=== PATIENT | female | born 1960 | race Caucasian/White ===

== ENCOUNTER 2019-04-26 07:41 | Outpatient (CLI) | payer OTHER ==
[~2019-04-26 07:41] MED LIST: LEVO500T2 PO; PHEN-786 PO
[2019-04-26 08:26] LABS: BASOPHILS # (AUTO) 0.1 X10'3 (0-0.2); BASOPHILS % (AUTO) 1.2 % (0-1); EOSINOPHILS # (AUTO) 0.5 X10'3 (0-0.9); EOSINOPHILS % (AUTO) 6.3 % (0-6); HEMATOCRIT 47.5 % (35.0-45.0); HEMOGLOBIN 16.2 g/dl (12.0-16.0); LYMPHOCYTES # (AUTO) 3.2 X10'3 (1.1-4.8); MEAN CORPUSCULAR HEMOGLOBIN 30.1 PG (27.0-31.0); MEAN CORPUSCULAR VOLUME 88.3 FL (78-98); MEAN PLATELET VOLUME 8.7 FL (7.4-10.4); MONOCYTES # (AUTO) 0.8 X10'3 (0-0.9); MONOCYTES % (AUTO) 10.1 % (2-12); NEUTROPHILS # (AUTO) 3.3 X10'3 (1.8-7.7); NEUTROPHILS % (AUTO) 41.4 % (42-75); PLATELET COUNT 299 X10'3 (140-440); RED BLOOD COUNT 5.39 X10'6 (4.20-5.60); RED CELL DISTRIBUTION WIDTH 13.4 % (11.5-14.5); WHITE BLOOD COUNT 7.9 X10'3 (4.5-11.0)
[2019-04-26 08:49] LABS: ALANINE AMINOTRANSFERASE 28 U/L (12-78); ALBUMIN 3.9 G/DL (3.4-5.0); ALBUMIN/GLOBULIN RATIO 1.2 (1.1-1.5); ALKALINE PHOSPHATASE 73 IU/L (46-116); ANION GAP 6 (8-16); ASPARTATE AMINO TRANSFERASE 17 U/L (10-37); BILIRUBIN,TOTAL 0.3 MG/DL (0.1-1.0); BLOOD UREA NITROGEN 13 MG/DL (7-18); BUN/CREATININE RATIO 15.1 (6.6-38.0); CALCIUM 9.5 MG/DL (8.5-10.1); CHLORIDE 106 MMOL/L (99-107); CHOL/HDL RATIO 4.3 (0.00-4.99); CHOLESTEROL 217 MG/DL (0-200); CREATININE 0.86 MG/DL (0.40-0.90); GLUCOSE 93 MG/DL (70-104); HDL CHOLESTEROL 50 MG/DL (35-60); LDL CHOLESTEROL 130 MG/DL (50-100); POTASSIUM 3.9 MMOL/L (3.5-5.1); SODIUM 142 MMOL/L (135-145); TOTAL CARBON DIOXIDE 30.1 MMOL/L (24-32); TOTAL PROTEIN 7.2 G/DL (6.4-8.2); TRIGLYCERIDES 136 MG/DL (20-135); eGFR 67 ML/MIN
== END 2019-04-26 23:59 | disposition home or self-care (01) ==
LOC: RAD 07:41
PROVIDERS: ATTEND Family Medicine
DX: S83.511A Sprain of anterior cruciate ligament of right knee, initial encounter (principal); M17.11 Unilateral primary osteoarthritis, right knee; X58.XXXA Exposure to other specified factors, initial encounter; Y93.89 Activity, other specified; Y92.89 Other specified places as the place of occurrence of the external cause; Y99.8 Other external cause status
CPT/HCPCS: 36415; 73721; 80053; 80061; 84443; 85025

== ENCOUNTER 2019-10-14 02:01 | Emergency (ER) | payer OTHER ==
[~2019-10-14] VITALS: Ht 167.6 cm; Wt 77.3 kg
[2019-10-14 02:04] VITALS: BP 165/98
[2019-10-14] MEDS ORDERED: phenazopyridine 100mg tablet PO ONE (02:20)
[2019-10-14 02:27] LABS: CLARITY,URINE CLOUDY (Clear); COLOR,URINE YELLOW (Yellow); GLUCOSE, URINE NEGATIVE (Neg); KETONES,URINE NEGATIVE (Neg); LEUKOCYTE ESTERASE ,URINE MODERATE (Neg); OCCULT BLOOD,URINE LARGE (Neg); PH,URINE 5.5 (4.8-8.0); PROTEIN,URINE 100 mg/dl (Neg)
[2019-10-14 02:31] LABS: UA COLLECTION TYPE CLN CATCH MIDSTREAM
[2019-10-14 02:32] LABS: NITRITES, URINE NEGATIVE (Neg)
[2019-10-14 02:35] LABS: BACTERIA,URINE FEW /HPF (Neg); RBC,URINE TNTC /HPF (0-2); SQUAMOUS EPITHELIAL CELL,UR FEW /LPF (FEW)
[2019-10-14] MEDS ORDERED: CIPR-230 PO (02:50)
[2019-10-14] MEDS ORDERED: ciprofloxacin 250mg tablet PO ONE (02:50)
== END 2019-10-14 03:17 | disposition home or self-care (01) ==
LOC: ER 02:02
DX: N39.0 Urinary tract infection, site not specified (principal); R39.15 Urgency of urination; R10.30 Lower abdominal pain, unspecified; Z79.2 Long term (current) use of antibiotics; Z79.899 Other long term (current) drug therapy
CPT/HCPCS: 81001; 87077; 87088; 87186; 99283

== ENCOUNTER 2022-11-03 08:38 | Outpatient (CLI) | payer BC | END 2022-11-03 23:59 | disposition home or self-care (01) | LOC: RAD 08:38 | PROVIDERS: ATTEND Physician Assistant | DX: M94.261 Chondromalacia, right knee (principal); M25.461 Effusion, right knee; M25.361 Other instability, right knee; Z87.828 Personal history of other (healed) physical injury and trauma | CPT/HCPCS: 73721 ==

== ENCOUNTER 2023-03-04 09:04 | Outpatient (CLI) | payer BC | END 2023-03-04 23:59 | disposition home or self-care (01) | LOC: RAD 09:04 | PROVIDERS: ATTEND Orthopaedic Surgery | DX: Z01.810 Encounter for preprocedural cardiovascular examination (principal); R00.0 Tachycardia, unspecified | CPT/HCPCS: 93005 ==

== ENCOUNTER 2023-05-06 16:01 | Outpatient (CLI) | payer BC | END 2023-05-06 23:59 | disposition home or self-care (01) | LOC: CARD DIAG 16:01 | PROVIDERS: ATTEND Internal Medicine Cardiovascular Disease | DX: Z01.810 Encounter for preprocedural cardiovascular examination (principal); I37.1 Nonrheumatic pulmonary valve insufficiency; I34.81 Nonrheumatic mitral (valve) annulus calcification | CPT/HCPCS: 93306 ==

== ENCOUNTER 2023-05-21 10:12 | Inpatient (IN) | payer BC ==
[2023-05-18 11:33] LABS: BASOPHILS # (AUTO) 0.1 X10'3 (0-0.2); BASOPHILS % (AUTO) 0.7 % (0-1); EOSINOPHILS # (AUTO) 0.3 X10'3 (0-0.9); EOSINOPHILS % (AUTO) 3.3 % (0-6); LYMPHOCYTES # (AUTO) 2.5 X10'3 (1.1-4.8); LYMPHOCYTES % (AUTO) 24.9 % (21-51); MEAN CORPUSCULAR HEMOGLOBIN 30.8 PG (27.0-31.0); MEAN CORPUSCULAR HGB CONC 34.1 g/dL (33.0-36.5); MEAN CORPUSCULAR VOLUME 90.4 FL (78-98); MEAN PLATELET VOLUME 9.1 FL (7.4-10.4); MONOCYTES % (AUTO) 9.5 % (2-12); NEUTROPHILS # (AUTO) 6.2 X10'3 (1.8-7.7); NEUTROPHILS % (AUTO) 61.6 % (42-75); PRE OP HEMATOCRIT 47.8 % (35.0-45.0); PRE OP HEMOGLOBIN 16.3 g/dL (12.0-16.0); PRE OP PLATELET COUNT 290 X10'3 (140-440); RED BLOOD COUNT 5.29 X10'6 (4.20-5.60)
[2023-05-18 11:53] LABS: ALBUMIN/GLOBULIN RATIO 1.1 (1.1-1.5); ALKALINE PHOSPHATASE 72 IU/L (46-116); BLOOD UREA NITROGEN 14 MG/DL (7-18); BUN/CREATININE RATIO 16.7 (10.0-20.0); CALCIUM 9.1 MG/DL (8.5-10.1); CHLORIDE 106 MMOL/L (99-107); CREATININE 0.84 MG/DL (0.40-0.90); PRE OP ALT 46 U/L (30-65); PRE OP ANION GAP 7 (8-16); PRE OP AST 30 U/L (10-37); PRE OP BILIRUB, TOTAL 0.6 MG/DL (0.0-1.0); PRE OP GLUCOSE 94 MG/DL (70-104); PRE OP POTASSIUM 4.1 MMOL/L (3.4-5.1); PRE OP SODIUM 141 MMOL/L (135-145); THYROID STIMULATING HORMONE 1.21 ulU/ml (0.34-4.50); TOTAL CARBON DIOXIDE 27.9 MMOL/L (24-32); TOTAL PROTEIN 7.6 G/DL (6.4-8.2); eGFR 68 ML/MIN
[2023-05-21] VITALS (32 sets, daily range): BP systolic 111–154; BP diastolic 59–98; PULSE 64–99; RESP 10–21; TEMP 97.5–97.7; O2SAT 87–98
[~2023-05-21] VITALS: Ht 167.6 cm; Wt 86.8 kg
[2023-05-21] MEDS: ringers solution, lacted 1,000 ML IV SCH ×2 (05:00→13:10)
[2023-05-21] MEDS: tranexamic acid inj. 1,000 MG in normal saline IV soln 100ML IV ONE (05:30)
[2023-05-21] MEDS: vancomycin 1,500 MG in NS 300ml IV soln IV ONE (05:30)
[2023-05-21] MEDS: metoclopramide 5 mg/ml inj IV ONE (05:30)
[2023-05-21] MEDS: cefazolin 2gm/D5W 100mL 100 ML IV ONE (05:30)
[~2023-05-21 10:12] MED LIST changes: +LEVO25TA2 PO; -LEVO500T2 PO; +LOSA50TA64 PO; +OMEP20CA16 PO; -PHEN-786 PO; +ROSU20TA73 PO
[2023-05-21] MEDS: famotidine 20mg tablet PO ONE (11:06)
[2023-05-21] MEDS: gabapentin 300mg capsule PO ONE (11:06)
[2023-05-21] MEDS: oxyCODONE SR 10mg (sust. release) tab -2 tabs (20mg) PO ONE (11:07)
[2023-05-21] MEDS: acetaminophen 325mg tablet PO ONE (11:07)
[2023-05-21] MEDS: celeCOXIB 100mg capsule PO ONE (11:07)
[2023-05-21] MEDS ORDERED: LIDOcaine 1%/PF 5ML 10 MG/ML VIAL ONE (12:42)
[2023-05-21] MEDS ORDERED: fentaNYL/PF 50MCG/1 ML 2ML syringe ONE (12:52)
[2023-05-21] MEDS ORDERED: proCHLORperazine 10 MG/2 ml inj IV PRN (13:10)
[2023-05-21] MEDS ORDERED: meperidine/PF 25mg/ml syringe IV PRN ×3 (13:10)
[2023-05-21] MEDS: acetaminophen 1,000mg/100ml IV 100 ML IV ONE (13:10)
[2023-05-21] MEDS ORDERED: morphine 4 MG/ML inj SYRINge IV PRN (13:10)
[2023-05-21] MEDS ORDERED: ondansetron/PF 4mg/2ml inj IV PRN (13:10)
[2023-05-21] MEDS ORDERED: hydrALAZINE 20mg/ml inj. IV PRN (13:10)
[2023-05-21] MEDS ORDERED: morphine 2 MG/ML inj. syringe IV PRN (13:10)
[2023-05-21] MEDS ORDERED: labetalol 20mg/4ml (5mg/ml) syringe IV PRN (13:10)
[2023-05-21] MEDS ORDERED: midazolam 1 mg/ML 2ml injection ONE (13:12)
[2023-05-21] MEDS ORDERED: propofol inj 20 ML IV ONE ×5 (13:12→14:36)
[2023-05-21] MEDS ORDERED: ePHEDrine 50MG/ML INJ. ONE (13:14)
[2023-05-21] MEDS: BUPIVACAINE/MELOXICAM 14 ML VIAL IL ONE (13:52)
[2023-05-21] MEDS: vancomycin 1,000mg inj ONE (13:53)
[2023-05-21] MEDS ORDERED: ROPIVAcaine 0.5% (5mg/ml) 30ml vial ONE (14:48)
[2023-05-21] MEDS ORDERED: dexamethasone sod phosphate 4mg/ml inj. ONE (14:48)
[2023-05-21] MEDS ORDERED: magnesium hydroxide 30ml (MOM) UD suspension PO PRN (14:50)
[2023-05-21] MEDS ORDERED: diphenhydrAMINE 25mg capsule PO PRN ×2 (14:50)
[2023-05-21] MEDS ORDERED: bisacodyl 10mg suppository rectal RC PRN (14:50)
[2023-05-21] MEDS ORDERED: acetaminophen 325mg tablet PO PRN (14:50)
[2023-05-21] MEDS ORDERED: naloxone 0.4 mg/ml inj IV PRN (14:50)
[2023-05-21] MEDS: ketorolac tromethamine 15mg/ml inj. IV ONE (16:41)
[2023-05-21] MEDS: cefazolin 2gm/D5W 100mL 100 ML IV SCH (17:12)
[2023-05-21] MEDS: tranexamic acid inj. 900 MG in normal saline 100ml IV soln 91 ML IV ONE (17:48)
[2023-05-21] MEDS: ondansetron/PF 4mg/2ml inj IV PRN (18:45)
[2023-05-21] MEDS: HYDROcodone/acetaminophen 10/325mg tab PO PRN (19:32)
[2023-05-21] MEDS: losartan 50mg tablet PO SCH (20:00)
[2023-05-21] MEDS: sennosides 8.6mg tablet PO SCH (21:00)
[2023-05-21] MEDS: VANCOMYCIN 1,500MG inj. 1,500 MG in normal saline 500ml IV soln 300 ML IV ONE (21:52)
[2023-05-21] MEDS: potassium cl 20mEq in 1/2 NS 1,000 ML IV SCH (21:53)
[2023-05-21] MEDS: ascorbic acid 500mg tablet PO SCH (22:00)
[2023-05-21] MEDS: gabapentin 300mg capsule PO SCH (22:00)
[2023-05-22 01:38] VITALS: BP 132/63; PULSE 90; RESP 16; TEMP 97.5; O2SAT 94
[2023-05-22] MEDS: HYDROcodone/acetaminophen 10/325mg tab PO PRN (04:25)
[2023-05-22] MEDS: atorvastatin 20mg tablet PO SCH (07:35)
[2023-05-22] MEDS: levoTHYROXINE 25mcg tablet PO SCH (07:37)
[2023-05-22 07:39] VITALS: BP_SYST 110; PULSE 95
[2023-05-22] MEDS: pantoprazole 40mg Tablet.DR PO SCH (07:41)
[2023-05-22] MEDS: aspirin 325mg tablet PO SCH (07:43)
[2023-05-22] MEDS: multivitamins, therapeutics tablet PO SCH (07:45)
[2023-05-22 08:47] LABS: BASOPHILS % (AUTO) 0.3 % (0-1); EOSINOPHILS % (AUTO) 0 % (0-6); HEMATOCRIT 39.5 % (35.0-45.0); HEMOGLOBIN 13.5 g/dl (12.0-16.0); LYMPHOCYTES # (AUTO) 1.4 X10'3 (1.1-4.8); LYMPHOCYTES % (AUTO) 10.1 % (21-51); MEAN CORPUSCULAR HEMOGLOBIN 30.5 PG (27.0-31.0); MEAN CORPUSCULAR HGB CONC 34.1 g/dL (33.0-36.5); MEAN CORPUSCULAR VOLUME 89.5 FL (78-98); MEAN PLATELET VOLUME 8.9 FL (7.4-10.4); MONOCYTES # (AUTO) 1.4 X10'3 (0-0.9); MONOCYTES % (AUTO) 10.4 % (2-12); NEUTROPHILS # (AUTO) 10.8 X10'3 (1.8-7.7); NEUTROPHILS % (AUTO) 79.2 % (42-75); PLATELET COUNT 261 X10'3 (140-440); RED BLOOD COUNT 4.42 X10'6 (4.20-5.60); RED CELL DISTRIBUTION WIDTH 12.7 % (11.5-14.5); WHITE BLOOD COUNT 13.6 X10'3 (4.5-11.0)
[2023-05-22 09:00] VITALS: RESP 16; O2SAT 95
[2023-05-22 09:19] LABS: CHLORIDE 105 MMOL/L (99-107); POTASSIUM 4.1 MMOL/L (3.5-5.1); SODIUM 139 MMOL/L (135-145)
[2023-05-22 09:43] LABS: ANION GAP 11 (8-16); TOTAL CARBON DIOXIDE 23.3 MMOL/L (24-32)
[2023-05-22] MEDS ORDERED: celeCOXIB 100mg capsule PO SCH (20:00)
== END 2023-05-22 09:30 | disposition home or self-care (01) | DRG 470 ==
LOC: PAS 10:12 → ORTHO 4S 14:52
PROVIDERS: ADMIT Orthopaedic Surgery; ATTEND Orthopaedic Surgery
PROC: 0SRC069 Replacement of Right Knee Joint with Oxidized Zirconium on Polyethylene Synthetic Substitute, Cemented, Open Approach (ICD-10-PCS; principal; 2023-05-21 12:42)
DX: M17.11 Unilateral primary osteoarthritis, right knee (principal); M21.161 Varus deformity, not elsewhere classified, right knee
CPT/HCPCS: Z7506; Z7508; 36415; 73560; 80051; 80053; 82948; 84443; 85025; 86885; 86900; 86901; 87081; 97110; 97116; 97161; 97530; A4215; A4615; A6449; A7000; A9272; C1713; C1776; G0378; J0690; J1100; J1885; J2250; J2405; J2704; J2765; J2795; J3010; J3370; J3480; J3490; J7040; J7120

== ENCOUNTER 2024-01-26 13:38 | Outpatient (CLI) | payer BC ==
[~2024-01-26 13:38] MED LIST changes: -ROSU20TA73 PO; +ROSU20TA98 PO
[2024-01-26 14:07] LABS: BASOPHILS # (AUTO) 0.1 X10'3 (0-0.2); EOSINOPHILS # (AUTO) 0.2 X10'3 (0-0.9); EOSINOPHILS % (AUTO) 3.4 % (0-6); HEMOGLOBIN 14.5 g/dl (12.0-16.0); LYMPHOCYTES # (AUTO) 2.4 X10'3 (1.1-4.8); LYMPHOCYTES % (AUTO) 33.5 % (21-51); MEAN CORPUSCULAR HEMOGLOBIN 30.3 PG (27.0-31.0); MEAN CORPUSCULAR HGB CONC 33.7 g/dL (33.0-36.5); MEAN CORPUSCULAR VOLUME 89.9 FL (78-98); MEAN PLATELET VOLUME 8.7 FL (7.4-10.4); MONOCYTES # (AUTO) 0.7 X10'3 (0-0.9); MONOCYTES % (AUTO) 9.5 % (2-12); NEUTROPHILS # (AUTO) 3.7 X10'3 (1.8-7.7); NEUTROPHILS % (AUTO) 52.6 % (42-75); PLATELET COUNT 307 X10'3 (140-440); RED BLOOD COUNT 4.78 X10'6 (4.20-5.60); RED CELL DISTRIBUTION WIDTH 12.6 % (11.5-14.5); WHITE BLOOD COUNT 7.1 X10'3 (4.5-11.0)
== END 2024-01-26 23:59 | disposition home or self-care (01) ==
LOC: LAB 13:38
PROVIDERS: ATTEND Orthopaedic Surgery
DX: Z01.812 Encounter for preprocedural laboratory examination (principal); Z79.01 Long term (current) use of anticoagulants; Z96.651 Presence of right artificial knee joint
CPT/HCPCS: 36415; 85025; 85651; 86140

== ENCOUNTER 2024-02-01 08:06 | Outpatient (CLI) | payer BC | END 2024-02-01 23:59 | disposition home or self-care (01) | LOC: NM 08:06 | PROVIDERS: ATTEND Physician Assistant | DX: Z96.651 Presence of right artificial knee joint (principal) | CPT/HCPCS: 78315; A9503 ==

== ENCOUNTER 2024-02-08 08:21 | Outpatient (CLI) | payer BC ==
[~2024-02-08] VITALS: Ht 165.1 cm; Wt 86.6 kg
[2024-02-08] VITALS (7 sets, daily range): BP systolic 133–174; BP diastolic 74–91; PULSE 63–100; RESP 18; O2SAT 100
[2024-02-08] MEDS ORDERED: aminophylline inj. 0 ML IV ONE (09:18)
[2024-02-08] MEDS: regadenoson 0.4mg/5ml syringe IV ONE (09:19)
== END 2024-02-08 23:59 | disposition home or self-care (01) ==
LOC: NM 08:21
PROVIDERS: ATTEND Internal Medicine Cardiovascular Disease
DX: R94.31 Abnormal electrocardiogram [ECG] [EKG] (principal); R06.00 Dyspnea, unspecified; R53.83 Other fatigue
CPT/HCPCS: 78452; 93017; A9500; J2785; J0280